=== PATIENT | male | born 1960 | race Caucasian/White ===

== ENCOUNTER → 2017-02-17 | Outpatient (CLI) | payer BC | END | disposition home or self-care (01) | LOC: RAH 09:23 | PROVIDERS: ATTEND Internal Medicine | DX: M41.84 Other forms of scoliosis, thoracic region (principal) | CPT/HCPCS: 72082 ==

== ENCOUNTER → 2024-05-08 | Outpatient (CLI) | payer BC ==
--- NOTE | 2024-05-08 15:38 | HMCIMG ---
LUMBAR SPINE RADIOGRAPHS - 2-3 VIEWS INDICATION: Back pain COMPARISON: None FINDINGS: AP, lateral, and coned-down lateral views. Normal lordotic curvature of the lumbar spine is maintained. Extremely shallow lumbar dextroscoliosis. Five nonrib-bearing lumbar vertebral bodies are noted. No acute fracture or subluxation identified. Vertebral body heights are well-maintained. Disc spaces are well-preserved. Multilevel mild anterior endplate osteophytic spurring. Moderate right and mild left hip degenerative joint disease. IMPRESSION: No fracture or subluxation identified.
== END | disposition home or self-care (01) ==
LOC: RAH 14:33
PROVIDERS: ATTEND Internal Medicine
DX: M16.0 Bilateral primary osteoarthritis of hip (principal); M25.78 Osteophyte, vertebrae; M54.50 Low back pain, unspecified; M54.9 Dorsalgia, unspecified; M41.86 Other forms of scoliosis, lumbar region
CPT/HCPCS: 72100